=== PATIENT | female | born 1995 | race Hispanic/Latino ===

== ENCOUNTER → 2018-03-12 | Outpatient (CLI) | payer OTHER ==
--- NOTE | 2018-03-12 15:01 | Diagnostic Imaging Report ---
PROCEDURE:X-RAY ABDOMEN - KUB COMPARISON:None. INDICATIONS:CALCULUS OF KIDNEY FINDINGS: There is a non-obstructed bowel-gas pattern. Questionable calcifications overlying left renal mid and inferior poles, measuring 2-3 mm. There are no acute osseous abnormalities. CONCLUSION: Questionable left renal mid and inferior pole calculi measuring up to 3 mm. Dictated by: Mike Brody M.D. on 03/12/2018 at 15:06 Electronically approved by: Mike Brody M.D. on 03/12/2018 at 15:06
== END ==
LOC: RAD 14:04
PROVIDERS: ATTEND Urology
DX: N20.0 Calculus of kidney (principal)
CPT/HCPCS: 74018

== ENCOUNTER → 2018-12-31 | Outpatient (CLI) | payer OTHER ==
--- NOTE | 2018-12-31 20:44 | Diagnostic Imaging Report ---
ABDOMEN-1VIEW (KUB) - 3 views HISTORY: History of kidney stones on the left COMPARISON: None available. FINDINGS: Nonobstructive bowel pattern. No aggressive osseous lesion. No significant degenerative changes. Small focus of mineralization overlying the left 12th rib measuring 3.5 mm may represent tiny renal calculus. IMPRESSION: Small 3.5 mm focus of mineralization overlying the left 12th rib may represent a renal calculus. Signed by: Joel Joshi MD on 12/31/2018 8:41 PM
== END ==
LOC: RAD 16:18
PROVIDERS: ATTEND Urology
DX: N20.0 Calculus of kidney (principal)
CPT/HCPCS: 74018; 81025